=== PATIENT | male | born 1965 | race Caucasian/White ===

== ENCOUNTER 2024-04-28 01:10 | Outpatient (CLI) | payer BC, SELFPAY ==
--- NOTE | 2024-04-28 | ETT_ITS ---
APPROVED REPORT Exam: Exercise Treadmill Patient Location: Out-Patient Room/Bed: Stress Nurse: Ruchi Kendrick RN Ordering Provider:BRETT SIDDIQUI, Contact Number: [phone] BMI: 30.78 Baseline Rhythm: Sinus Rhythm Indications: Fatigue, cough, alcohol abuse in remission Medical History Medical History: Alcohol abuse in remission, depression, insomnia, hemorrhage of anus and rectum Cardiac Medications: None Allergies: Sertraline, citalopram Cardiac Risk Factors: Family hx, former smoker Previous Cardiac Procedures: None Pretest Chest Pain Characteristics: None Exercise History: Sedentary Physical Disabilities: None Lung Sounds: Clear to auscultation Heart Sounds: Bradycardia Stress Test Details Test: Exercise stress testing was performed using a Jonny protocol. Rest Stress HR Resting HR Supine: 49 bpm Max Heart Rate (APMHR): 160 bpm Resting HR Standin bpm Target HR (85% APMHR): 136 bpm Max HR Achieved: 136 bpm % of APMHR: 85 Recovery HR: 58 bpm HR response to stress: Normal HR response to stress BP Resting BP Supine: 112/78 mmHg Resting BP Standin/68 mmHg Max BP: 168/84 mmHg Recovery BP: 128/72 mmHg BP response to stress: Normal blood pressure response to stress. ECG Resting ECG: Sinus Bradycardia Ectopy: None Stress ECG: Sinus Tachycardia ST Change: No significant ST segment changes noted Arrhythmia: None Comment: Significant artifact noted Recovery ECG: Sinus Rhythm Recovery ST Change: No significant ST segment changes noted Recovery Arrhythmia: Rare PAC Clinical Reason for Termination: Target HR Achieved, significant artifact Stress Symptoms: Leg Fatigue Exercise duration: 07 min04 sec Highest Stage Reached: Stage 3: 3.4 mph at 14% grade. Exercise capacity: 8.68 METs Angina Score: None Prajapati Treadmill Score: 6.5 Rate Pressure Product: [id number] Stress ECG Conclusion 1. Resting electrocardiogram was normal 2. Patient exercised on Jonny protocol and completed a workload of 8.68 METS 3. Normal heart rate and blood pressure response to exercise. The patient achieved 85% of predicted heart rate for age 4. There was no electrocardiographic evidence of myocardial ischemia 5. There were no significant dysrhythmias Prajapati Treadmill Score is 6.5 which is Low risk. Stress Test Summary STAGE Time (mins) Speed (mph) Grade (%) HR BP SpO2 SYMPTOMS METS Supine 49 112/78 98% Standing 65 116/68 1 3 1.7 10 94 4.5 2 6 2.5 12 121 7 3 9 3.4 14 136 10 1 min recovery 99 168/84 3 min recovery 69 144/70 6 min recovery 57 128/72
== END 2024-04-28 01:30 ==
LOC: DI 01:10
PROVIDERS: Visit Provider Family Medicine
DX: R53.83 Other fatigue (principal); R05.9 Cough, unspecified; R68.89 Other general symptoms and signs; K21.9 Gastro-esophageal reflux disease without esophagitis
CPT/HCPCS: 93017